=== PATIENT | male | born 1975 | race African-American/Black ===

== ENCOUNTER 2017-10-15 20:03 | Emergency (ER) | payer OTHER ==
[~2017-10-15] VITALS: Ht 180.3 cm; Wt 67.9 kg
[2017-10-15] MEDS ORDERED: ASPIRIN 81 MG TABLET CHEW PO ONE (20:30)
[2017-10-15] MEDS ORDERED: ASPIRIN 81 MG TABLET CHEW ONE (20:34)
[2017-10-15 20:44] LABS: MEAN CORPUSCULAR HGB CONC 33.5 g/dL (33.2-36.2); MEAN CORPUSCULAR VOLUME 98.6 fL (81-97); MEAN PLATELET VOLUME 7.8 fL (7.4-10.4); PLATELET COUNT 257 x10^3/uL (130-400); RED BLOOD COUNT 4.59 x10^6/uL (4.38-5.82); RED CELL DISTRIBUTION WIDTH 12.9 % (9.4-14.8)
[2017-10-15 20:54] LABS: MICROSCOPIC NOT IND
[2017-10-15 20:55] LABS: ALBUMIN 4.1 g/dL (3.4-5.0); ANION GAP 6 mmol/L (5-15); CALCIUM 9.3 mg/dL (8.5-10.1); CHLORIDE 105 mmol/L (98-107)
[2017-10-15 20:59] LABS: TROPONIN I < 0.015 ng/mL (0.000-0.045)
[2017-10-15 21:17] LABS: MD YES
[2017-10-15 21:22] LABS: BASOS% (MANUAL) 2 % (0-1); LYMPHS% (MANUAL) 24 % (22-44); MONOS% (MANUAL) 14 % (2-9); SEGS% (MANUAL) 60 % (42-75)
[2017-10-15 21:23] LABS: ANISOCYTOSIS 1+
[2017-10-15 21:24] LABS: <PLATELET ESTIMATE> ADEQUATE
[2017-10-15 21:25] LABS: <PLT MORPHOLOGY> NORMAL PLT MORPH
[2017-10-15 21:27] VITALS: BP 78/55
== END 2017-10-15 21:57 | disposition home or self-care (01) ==
LOC: ED 21:50
DX: R07.9 Chest pain, unspecified (principal); R53.81 Other malaise; R53.83 Other fatigue; G89.29 Other chronic pain
CPT/HCPCS: 36415; 71046; 80048; 81003; 82040; 83880; 84484; 85025; 86141; 87491; 87591; 93005; 99285